=== PATIENT | female | born 1995 | race African-American/Black ===

== ENCOUNTER 2017-10-20 18:10 | Observation (INO) | payer MEDICAID ==
[~2017-10-20] VITALS: Ht 162.6 cm; Wt 104.8 kg
[2017-10-20] MEDS ORDERED: FERR325T6 PO (18:41)
[2017-10-20] MEDS ORDERED: PNV1TABL76 PO (18:41)
[2017-10-20] MEDS ORDERED: ERGO400C PO (18:41)
[2017-10-20] MEDS ORDERED: LACTATED RINGERS 1,000 ML IV SCH (18:45)
[2017-10-20] MEDS ORDERED: TERBUTALINE SULFATE 1MG/ML VIAL SUBCUT PRN (18:45)
[2017-10-20 19:27] LABS: CLARITY URINE CLEAR (CLEAR); COLOR URINE YELLOW (YELLOW); KETONES URINE 1+ (NEGATIVE); LEUKOCYTE ESTERASE URINE NEGATIVE (NEGATIVE); NITRITE URINE NEGATIVE (NEGATIVE); OCCULT BLOOD URINE NEGATIVE (NEGATIVE); PH URINE 5.5 (4.5-8.0); PROTEIN URINE NEGATIVE (NEGATIVE); SPECIFIC GRAVITY URINE 1.015 (1.005-1.030)
[2017-10-20] MEDS ORDERED: BETAMETHASONE ACET/BETAMET 30 MG/5 ML VIAL IM NR (20:45)
== END 2017-10-20 21:20 | disposition home or self-care (01) ==
LOC: L&D 18:10
PROVIDERS: ADMIT Obstetrics & Gynecology; ATTEND Obstetrics & Gynecology
DX: O26.853 Spotting complicating pregnancy, third trimester (principal); O26.893 Other specified pregnancy related conditions, third trimester; R10.30 Lower abdominal pain, unspecified; O36.8130 Decreased fetal movements, third trimester, not applicable or unspecified; Z3A.28 28 weeks gestation of pregnancy
CPT/HCPCS: 76805; 76817; 76818; 81003; 96360; 96361; 96372; 99281; G0378; J0702; J3105; J7120; 59412